=== PATIENT | female | born 1965 | race Caucasian/White ===

== ENCOUNTER 2016-05-28 21:16 | Emergency (ER) | payer OTHER ==
[~2016-05-28] VITALS: Wt 91.0 kg
[2016-05-28] MEDS ORDERED: KETOROLAC 60 MG INJ IM STA (23:05)
[2016-05-28] MEDS ORDERED: HYDROCODONE/APAP (5/325) TAB PO ONE (23:30)
--- NOTE | 2016-05-29 00:03 | RADRPT ---
PROCEDURE: XR Ribs. CLINICAL INDICATION: Chest pain. TECHNIQUE: 4 frontal and oblique views of bilateral ribs were obtained. The images were reviewed on a PACS workstation. COMPARISON: None. FINDINGS: There is no evidence for a rib fracture. The underlying lung parenchyma is intact without evidence f or pneumothorax. IMPRESSION: No acute rib fracture identified. .Frederic Almodovar MD, MD Date Time Electronically viewed and signed by .Frederic Almodovar MD, on 05/29/2016 00:02 .T/
[2016-05-29] MEDS ORDERED: DOCU-144 PO (01:12)
[2016-05-29] MEDS ORDERED: NAPR-688 PO (01:12)
[2016-05-29] MEDS ORDERED: HYDR-906 PO (01:12)
[2016-05-29] MEDS ORDERED: METH500T PO (01:12)
[2016-05-29 01:19] VITALS: BP 138/77; PULSE 81; RESP 20; TEMP 98
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
== END 2016-05-29 01:20 | disposition left against medical advice (07) ==
LOC: E/R 21:16
DX: S20.211A Contusion of right front wall of thorax, initial encounter (principal); S20.212A Contusion of left front wall of thorax, initial encounter; F17.210 Nicotine dependence, cigarettes, uncomplicated; R40.2142 Coma scale, eyes open, spontaneous, at arrival to emergency department; R40.2252 Coma scale, best verbal response, oriented, at arrival to emergency department; R40.2362 Coma scale, best motor response, obeys commands, at arrival to emergency department; X50.9XXA Other and unspecified overexertion or strenuous movements or postures, initial encounter; Y92.9 Unspecified place or not applicable
CPT/HCPCS: 71110; 96372; J1885; Z7502; Z7610